=== PATIENT | male | born 1960 | race Caucasian/White ===

== ENCOUNTER 2017-08-02 22:40 | Emergency (ER) ==
[2017-08-02] MEDS ORDERED: ASPIRIN 81 MG TABLET, CHEWABLE PO ONE (22:49)
--- NOTE | 2017-08-03 11:41 | EKG REPORT ---
SEVERITY:- ABNORMAL ECG - SINUS TACHYCARDIA LEFT AXIS DEVIATION LEFT VENTRICULAR HYPERTROPHY BORDERLINE PROLONGED QT INTERVAL : Confirmed by: Alana Pavon MD 03-Aug-2017 11:40:21
== END 2017-08-03 00:43 | disposition left against medical advice (07) ==
LOC: EDBD → ER 22:40
DX: Z53.21 Procedure and treatment not carried out due to patient leaving prior to being seen by health care provider (principal)
CPT/HCPCS: 93005; 93010

== ENCOUNTER 2017-09-17 19:34 | Emergency (ER) | payer OTHER ==
[2017-09-17] MEDS ORDERED: ASPIRIN 81 MG TABLET, CHEWABLE PO ONE (19:57)
--- NOTE | 2017-09-17 19:59 | ER Document Report ---
ED Medical Screen (RME) - General Chief Complaint: Chest Pain Stated Complaint: CHEST PAIN Time Seen by Provider: 09/17/17 19:54 TRAVEL OUTSIDE OF THE [place] IN LAST 30 DAYS: No - HPI Notes: 09/17/17 19:58 History of CAD with stent placement history CHF states chest pain ongoing for the last 24 hours secondary chest recently [facility] states is out of his medications at this time. States orthopnea dyspnea on exertion - Related Data Allergies/Adverse Reactions: Penicillins Allergy (Verified 09/17/17 19:37) Review of Systems - Review of Systems Constitutional: Other - Chest pain Physical Exam - Vital signs Vitals: Temp Pulse Resp BP Pulse Ox 98.0 F 104 H 20 163/80 H 97 09/17/17 19:53 09/17/17 19:53 09/17/17 19:53 09/17/17 19:53 09/17/17 19:53 - Respiratory Respiratory status: No respiratory distress Chest status: Nontender Breath sounds: Normal Chest palpation: Normal Course - Vital Signs Vital signs: Temp Pulse Resp BP Pulse Ox 98.0 F 104 H 20 163/80 H 97 09/17/17 19:53 09/17/17 19:53 09/17/17 19:53 09/17/17 19:53 09/17/17 19:53
[2017-09-17 20:36] LABS: ABSOLUTE BASOPHILS # (AUTO) 0.1 10^3/uL (0.0-0.2); ABSOLUTE EOSINOPHILS # (AUTO) 0.3 10^3/uL (0.0-0.6); ABSOLUTE LYMPHOCYTES (AUTO) 1.4 10^3/uL (0.5-4.7); ABSOLUTE MONOCYTES (AUTO) 0.7 10^3/uL (0.1-1.4); ABSOLUTE NEUT (AUTO) 5.8 10^3/uL (1.7-8.2); EOSINOPHILS % (AUTO) 3.3 % (0-6); HEMATOCRIT 41.2 % (37.9-51.0); HEMOGLOBIN 14.2 g/dL (13.5-17.0); LYMPHOCYTES % (AUTO) 17.2 % (13-45); MEAN CORPUSCULAR HEMOGLOBIN 31.2 pg (27.0-33.4); MEAN CORPUSCULAR HGB CONC 34.4 g/dL (32.0-36.0); MEAN CORPUSCULAR VOLUME 91 fl (80-97); PLATELET COUNT 220 10^3/uL (150-450); RED BLOOD COUNT 4.55 10^6/uL (4.35-5.55); RED CELL DISTRIBUTION WIDTH 13.9 % (11.5-14.0); SEGMENTED NEUTROPHILS % (AUTO) 69.5 % (42-78); TOTAL CELLS COUNTED % (AUTO) 100 %; WHITE BLOOD COUNT 8.3 10^3/uL (4.0-10.5)
[2017-09-17 20:45] LABS: PROTHROMBIN TIME 12.6 SEC (11.4-15.4)
[2017-09-17 20:50] LABS: ALANINE AMINOTRANSFERASE 32 U/L (21-72); ALBUMIN 3.9 g/dL (3.5-5.0); ALKALINE PHOSPHATASE 62 U/L (38-126); ANION GAP 11 (5-19); ASPARTATE AMINO TRANSFERASE 24 U/L (17-59); BILIRUBIN,DIRECT 0.3 mg/dL (0.0-0.4); BLOOD UREA NITROGEN 12 mg/dL (7-20); CALCIUM 9.7 mg/dL (8.4-10.2); CARBON DIOXIDE 26 mmol/L (22-30); CHLORIDE 107 mmol/L (98-107); CREATINE KINASE 59 U/L (55-170); GLUCOSE 105 mg/dL (75-110); LIPASE 109.1 U/L (23-300); SODIUM 143.6 mmol/L (137-145); TOTAL PROTEIN 7.1 g/dL (6.3-8.2)
[2017-09-17 21:02] LABS: CREATINE KINASE MB 2.24 ng/mL (<4.55)
--- NOTE | 2017-09-17 21:08 | RADIOLOGY REPORT (SQ) ---
EXAM DESCRIPTION: CHEST SINGLE VIEW COMPLETED DATE/TIME: 09/17/2017 8:44 pm REASON FOR STUDY: sob cp COMPARISON: None. EXAM PARAMETERS: NUMBER OF VIEWS: One view. TECHNIQUE: Single frontal radiographic view of the chest acquired. RADIATION DOSE: NA LIMITATIONS: None. FINDINGS: LUNGS AND PLEURA: No opacities, masses or pneumothorax. No pleural effusion. MEDIASTINUM AND HILAR STRUCTURES: No masses. Contour normal. HEART AND VASCULAR STRUCTURES: Heart upper limits of normal in size. Normal vasculature. BONES: No acute findings. HARDWARE: None in the chest. OTHER: No other significant finding. IMPRESSION: NO ACUTE RADIOGRAPHIC FINDING IN THE CHEST. TECHNICAL DOCUMENTATION: JOB ID: [id number] [employer]- All Rights Reserved Reading location - IP/workstation name: [email or web address]
[2017-09-17 21:17] LABS: TROPONIN I 0.089 ng/mL
[2017-09-17] MEDS ORDERED: ONDANSETRON HCL INJ/PF 4 MG/2 ML SDV IV ONE (21:38)
--- NOTE | 2017-09-17 21:38 | ER Document Report ---
ED Respiratory Problem - General Chief Complaint: Chest Pain Stated Complaint: CHEST PAIN Time Seen by Provider: 09/17/17 19:54 Notes: Patient is a 56-year-old male that comes emergency department for chief complaint of shortness of breath for the past 24 hours, he states since a day ago he cannot seem to catch his breath, he can barely walk across the room, he cannot lie flat or get comfortable. He reports tightness across the chest with the shortness of breath but denies specific chest pain. Reports nausea, denies vomiting. Denies fever or chills, cough. He smokes, has a history of CAD with stents in 2015 in [place], has a history of CHF which was mild per patient. He states he has not had any lower extremity swelling. He used to be on carvedilol, lisinopril, and only as needed Lasix but he is in transition with his job and out of insurance at the time. He denies any recent long distance travel or surgery. Denies history of pulmonary embolism. TRAVEL OUTSIDE OF THE [place] IN LAST 30 DAYS: No - Related Data Allergies/Adverse Reactions: Penicillins Allergy (Verified 09/17/17 19:37) Past Medical History - General Information source: Patient - Social History Smoking Status: Current Every Day Smoker Chew tobacco use (# tins/day): No Frequency of alcohol use: Occasional Drug Abuse: None Lives with: Alone Family History: Reviewed & Not Pertinent Patient has suicidal ideation: No Patient has homicidal ideation: No - Past Medical History Cardiac Medical History: Reports: Hx Congestive Heart Failure, Hx Heart Attack - x2 Pulmonary Medical History: Reports: Hx COPD Renal/ Medical History: Denies: Hx Peritoneal Dialysis Past Surgical History: Reports: Hx Appendectomy, Hx Cardiac Surgery - stent x2, Hx Orthopedic Surgery - 9 back sx Review of Systems - Review of Systems Constitutional: No symptoms reported EENT: No symptoms reported Cardiovascular: See HPI Respiratory: See HPI Gastrointestinal: No symptoms reported Genitourinary: No symptoms reported Male Genitourinary: No symptoms reported Musculoskeletal: No symptoms reported Skin: No symptoms reported Hematologic/Lymphatic: No symptoms reported Neurological/Psychological: No symptoms reported Physical Exam - Vital signs Vitals: Temp Pulse Resp BP Pulse Ox 98.0 F 104 H 20 163/80 H 97 09/17/17 19:53 09/17/17 19:53 09/17/17 19:53 09/17/17 19:53 09/17/17 19:53 - Notes Notes: GENERAL: Alert, interacts well. Patient appears mildly uncomfortable. HEAD: Normocephalic, atraumatic. EYES: Pupils equal, round, and reactive to light. Extraocular movements intact. ENT: Oral mucosa moist, tongue midline. NECK: Full range of motion. Supple. Trachea midline. LUNGS: Clear to auscultation bilaterally, no wheezes, rales, or rhonchi. Mild tachypnea. HEART: Tachycardia with normal rhythm. No murmur ABDOMEN: Soft, non-tender. Non-distended. Bowel sounds present in all 4 quadrants. EXTREMITIES: Moves all 4 extremities spontaneously. No edema, normal radial and dorsalis pedis pulses bilaterally. No cyanosis. BACK: no cervical, thoracic, lumbar midline tenderness. No saddle anesthesia, normal distal neurovascular exam. NEUROLOGICAL: Alert and oriented x3. Normal speech. [cranial nerves II through XII grossly intact]. SKIN: Warm, dry, normal turgor. No rashes or lesions noted. Course - Re-evaluation Re-evalutation: 09/17/17 21:38 EKG shows sinus tachycardia at a rate of 108, left ventricular hypertrophy, no T -wave inversions or ST segment changes in consecutive leads. Patient noted to be mildly short of breath with tachypnea on examination, he is tachycardic at 115 on my evaluation. He states at rest right now his chest is not tight, he reports some nausea. Because of tachycardia, shortness of breath , dyspnea on exertion, chest tightness, will rule out PE. Initial troponin 0 0.089, will trend. BNP is mildly elevated in the 1999s, no comparison. CBC, chemistry generally unremarkable. Chest x-ray unremarkable with no vascular congestion, patient has no rales on exam, no peripheral edema. He is not hypoxic. CTA with some patchy areas bilaterally but no overt consolidation, no PE, no dissection, no other acute abnormality. Given Lasix. Repeat troponin elevating with troponin 00.11 now, patient without significant change in his symptoms, repeat EKG with no development. Starting Lovenox. Patient was given aspirin and morphine because of patient's amount of discomfort on the bed although he still denies chest tightness on my reevaluation. Because of elevating troponin, patient's symptoms, and his history including multiple stents patient will most likely need transfer to tertiary care center with interventional cardiology. Discussed with Dr. Newman. Discussed with patient. Called and spoke with Dr. Prieto, cardiology at [facility]. Patient accepted for transfer. 09/18/17 02:10 Patient relaxed, states he feels better than previously, denies any new complaints, no significant change in vital signs except for slightly elevating blood pressure. 09/18/17 02:40 Patient is complaining of tightness in his chest now. EMS team is here. Starting nitroglycerin drip for this to infuse during transport. No significant change otherwise. Stable for transport. - Vital Signs Vital signs: Temp Pulse Resp BP Pulse Ox 97.5 F 97 20 162/101 H 96 09/18/17 02:33 09/18/17 00:56 09/18/17 02:33 09/18/17 02:33 09/18/17 02:33 - Laboratory Result Diagrams: 09/17/17 20:18 09/17/17 20:18 Laboratory results interpreted by me: 09/17/17 20:18 NT-Pro-B Natriuret Pep 2810 H Critical Care Note - Critical Care Note Total time excluding time spent on procedures (mins): 35 - Chest pain, elevated troponin Comments: Please allow 35 minutes of critical care time for management of patient with chest pain, elevating troponin. Time spent performing workup, reevaluating patient multiple times, treating for suspected developing N STEMI with aspirin, Lovenox, morphine, treating suspected congestive heart failure with Lasix, treating developing chest pain with nitroglycerin drip. Consultation and transfer to tertiary care center. Discharge - Discharge Clinical Impression: Chest tightness, Elevated troponin, Shortness of breath Condition: Stable Disposition: [facility]
--- NOTE | 2017-09-17 22:48 | RADIOLOGY REPORT (SQ) ---
EXAM DESCRIPTION: CT CHEST ANGIOGRAPHY WITHOUT THEN WITH IV CONTRAST COMPLETED DATE/TME: 09/17/2017 21:36 CLINICAL HISTORY: 56 years, Male, tachycardia, short of breath, chest tightness COMPARISON: PROCEDURE: CLINICAL HISTORY: 56 years Male tachycardia, short of breath, chest tightness COMPARISON: None. TECHNIQUE: Contiguous axial images were obtained through the chest during the infusion of IV contrast. Reformatted images obtained. MIP reformatted images obtained. This exam was performed according to our department optimization program which includes automated exposure control, adjustment of the mA and/or kv according to patient size and/or use of iterative reconstruction technique. FINDINGS: There are mildly enlarged mediastinal lymph nodes. Partially solid appearing 12 mm left lung base pulmonary lesion is present. There is scattered atelectasis and consolidation elsewhere in the left lung base. Partially solid nodule is seen at the right lung base and measures 17 mm AP by 12 mm transverse. There is scattered groundglass opacification in both lungs. No pneumothorax is seen. Heart size is normal. No pleural effusions. No lymphadenopathy. No PE is seen. No evidence of aortic aneurysm. No other significant abnormality. IMPRESSION: No evidence of pulmonary embolus. See additional findings above.
--- NOTE | 2017-09-17 22:54 | EKG REPORT ---
SEVERITY:- ABNORMAL ECG - SINUS TACHYCARDIA LEFT ATRIAL ABNORMALITY LVH WITH SECONDARY REPOLARIZATION ABNORMALITY : Confirmed by: Pascual Overton 17-Sep-2017 22:53:50
[2017-09-18] MEDS ORDERED: MORPHINE SULFATE 10 MG/ML INJ IV ONE (00:08)
[2017-09-18] MEDS ORDERED: ENOXAPARIN SODIUM INJ 120 MG/0.8 ML DISP.SYRIN SUBCUT SCH (00:15)
[2017-09-18] MEDS ORDERED: FUROSEMIDE INJ/PF 40 MG/4 ML SDV IV ONE (00:25)
[2017-09-18] MEDS ORDERED: ENOXAPARIN SODIUM INJ 120 MG/0.8 ML DISP.SYRIN SUBCUT ONE (00:30)
[2017-09-18] MEDS ORDERED: NITROGLYCERIN/D5W 50 MG/250 ML RTUINJ IV PRN (02:39)
[2017-09-18] MEDS ORDERED: NITROGLYCERIN/D5W 50 MG/250 ML RTUINJ IV ONE (02:46)
[2017-09-18 02:53] VITALS: BP 162/101
--- NOTE | 2017-09-18 06:46 | EKG REPORT ---
SEVERITY:- ABNORMAL ECG - SINUS RHYTHM NONSPECIFIC INTRAVENTRICULAR CONDUCTION DELAY LEFT VENTRICULAR HYPERTROPHY : Confirmed by: Pascual Overton 18-Sep-2017 06:45:59
[2017-09-18] MEDS ORDERED: ENOXAPARIN SODIUM INJ 100 MG/1 ML DISP.SYRIN SUBCUT SCH (10:00)
== END 2017-09-18 02:52 | disposition short-term general hospital (02) ==
LOC: ER 19:34
DX: R07.89 Other chest pain (principal); R74.8 Abnormal levels of other serum enzymes; I25.10 Atherosclerotic heart disease of native coronary artery without angina pectoris; R00.0 Tachycardia, unspecified; I51.7 Cardiomegaly; J44.9 Chronic obstructive pulmonary disease, unspecified; R06.02 Shortness of breath; R11.0 Nausea; F17.200 Nicotine dependence, unspecified, uncomplicated; Z95.5 Presence of coronary angioplasty implant and graft; Z88.0 Allergy status to penicillin
CPT/HCPCS: 93005 ×2; 99285; 96372; 96374; 96375; 36415; 82553; 82550; 83690; 85025; 85610; 80053; 84484; 83880; 71045; 71275; 93010 ×2; J1940; J1650; J2270; J2405; J3490

== ENCOUNTER 2018-04-05 17:00 | Observation (INO) | payer SELFPAY ==
--- NOTE | 2018-04-05 18:40 | ER Document Report ---
ED Medical Screen (RME) - General Chief Complaint: Chest Pain Stated Complaint: CHEST PAIN Time Seen by Provider: 04/05/18 18:27 Notes: 57-year-old's male presents emergency department complaints of chest pain, shortness of breath, rectal bleeding. Symptoms have been present intermittently for the last 4 weeks. Patient has a history of coronary artery disease with 5 stents placed. He states that he also has hypertension, diabetes, hyper lipidemia, COPD, CHF. Patient states that he took aspirin this morning. He states that the rectal bleeding is bright red and mixed in the stool. He has a history of hemorrhoids but thinks the bleeding is coming from elsewhere. He denies any straining. I have greeted and performed a rapid initial assessment of this patient. A comprehensive ED assessment and evaluation of the patient, analysis of test results and completion of the medical decision making process will be conducted by additional ED providers. PHYSICAL EXAMINATION: GENERAL: Well-appearing, well-nourished and in no acute distress. HEAD: Atraumatic, normocephalic. EYES: Pupils equal round extraocular movements intact, conjunctiva are normal. ENT: Nares patent NECK: Normal range of motion LUNGS: No respiratory distress Musculoskeletal: Normal range of motion NEUROLOGICAL: Normal speech, normal gait. PSYCH: Normal mood, normal affect. SKIN: Warm, Dry, normal turgor, no rashes or lesions noted. TRAVEL OUTSIDE OF THE [place] IN LAST 30 DAYS: No - Related Data Allergies/Adverse Reactions: Penicillins Allergy (Verified 04/05/18 17:08) ondansetron [From Zofran] Adverse Reaction (Verified 04/05/18 18:26) headache Past Medical History - Social History Chew tobacco use (# tins/day): No Frequency of alcohol use: None Drug Abuse: None - Past Medical History Cardiac Medical History: Reports: Hx Congestive Heart Failure, Hx Heart Attack - x2, Hx Hypercholesterolemia, Hx Hypertension Pulmonary Medical History: Reports: Hx COPD Renal/ Medical History: Denies: Hx Peritoneal Dialysis Past Surgical History: Reports: Hx Appendectomy, Hx Cardiac Surgery - stent x2, Hx Orthopedic Surgery - 9 back sx Physical Exam - Vital signs Vitals: Temp Pulse Resp BP Pulse Ox 97.6 F 78 20 166/83 H 97 04/05/18 17:19 04/05/18 17:19 04/05/18 17:19 04/05/18 17:19 04/05/18 17:19 Course - Vital Signs Vital signs: Temp Pulse Resp BP Pulse Ox 97.6 F 78 20 166/83 H 97 04/05/18 17:19 04/05/18 17:19 04/05/18 17:19 04/05/18 17:19 04/05/18 17:19
--- NOTE | 2018-04-05 18:57 | RADIOLOGY REPORT (SQ) ---
EXAM DESCRIPTION: CHEST SINGLE VIEW COMPLETED DATE/TIME: 04/05/2018 6:48 pm REASON FOR STUDY: chest pain COMPARISON: 09/17/2017 EXAM PARAMETERS: NUMBER OF VIEWS: One view. TECHNIQUE: Single frontal radiographic view of the chest acquired. RADIATION DOSE: NA LIMITATIONS: None. FINDINGS: LUNGS AND PLEURA: No opacities, masses or pneumothorax. No pleural effusion. MEDIASTINUM AND HILAR STRUCTURES: No masses. Contour normal. HEART AND VASCULAR STRUCTURES: Heart normal in size. Normal vasculature. BONES: No acute findings. HARDWARE: None in the chest. OTHER: No other significant finding. IMPRESSION: NO ACUTE RADIOGRAPHIC FINDING IN THE CHEST. TECHNICAL DOCUMENTATION: JOB ID: [id number] [employer]- All Rights Reserved Reading location - IP/workstation name: [email or web address]
[2018-04-05 19:05] LABS: ABSOLUTE BASOPHILS # (AUTO) 0.1 10^3/uL (0.0-0.2); ABSOLUTE EOSINOPHILS # (AUTO) 0.5 10^3/uL (0.0-0.6); ABSOLUTE LYMPHOCYTES (AUTO) 1.9 10^3/uL (0.5-4.7); ABSOLUTE NEUT (AUTO) 5.6 10^3/uL (1.7-8.2); BASOPHILS % (AUTO) 1.1 % (0-2); EOSINOPHILS % (AUTO) 5.4 % (0-6); HEMATOCRIT 41.2 % (37.9-51.0); HEMOGLOBIN 14.5 g/dL (13.5-17.0); LYMPHOCYTES % (AUTO) 20.5 % (13-45); MEAN CORPUSCULAR HGB CONC 35.1 g/dL (32.0-36.0); MEAN CORPUSCULAR VOLUME 91 fl (80-97); PLATELET COUNT 252 10^3/uL (150-450); RED BLOOD COUNT 4.52 10^6/uL (4.35-5.55); RED CELL DISTRIBUTION WIDTH 13.5 % (11.5-14.0); TOTAL CELLS COUNTED % (AUTO) 100 %; WHITE BLOOD COUNT 9.1 10^3/uL (4.0-10.5)
[2018-04-05 19:24] LABS: ALANINE AMINOTRANSFERASE 24 U/L (21-72); ALBUMIN 4.5 g/dL (3.5-5.0); ALKALINE PHOSPHATASE 84 U/L (38-126); ANION GAP 11 (5-19); ASPARTATE AMINO TRANSFERASE 37 U/L (17-59); BILIRUBIN,DIRECT 0.2 mg/dL (0.0-0.4); BILIRUBIN,TOTAL 0.7 mg/dL (0.2-1.3); BLOOD UREA NITROGEN 12 mg/dL (7-20); CALCIUM 9.6 mg/dL (8.4-10.2); CARBON DIOXIDE 26 mmol/L (22-30); CHLORIDE 105 mmol/L (98-107); GLUCOSE 81 mg/dL (75-110); POTASSIUM 4.5 mmol/L (3.6-5.0); SODIUM 141.9 mmol/L (137-145); TOTAL PROTEIN 7.8 g/dL (6.3-8.2)
--- NOTE | 2018-04-06 03:03 | ER Document Report ---
ED General - General Chief Complaint: Chest Pain Stated Complaint: CHEST PAIN Time Seen by Provider: 04/05/18 18:27 Notes: Patient is a 57-year-old male with a past medical history of coronary artery disease, has had 5 stents placed recently in August 2017, hypertension, hyperlipidemia, obesity, presents complaining of 1 month of intermittent chest discomfort as well as exertional dyspnea. The patient reports for the past 1 month he has had increasing frequent episodes of left-sided chest pain that radiated to his jaw and arm. Describes this as a heaviness or pressure in the left chest. States that exertion does seem to trigger the symptoms. Has tried nitroglycerin without relief. States the part of the past 1 month he never had chest pain like this except for when he had his myocardial infarction in August 2017. Patient does note some mild left-sided chest pressure at this time although states it is minimal and much better than prior to when he came to the hospital. The patient also reports that he has difficulty exerting himself, states that he cannot get up 2 flights of steps without becoming completely out of breath which again is new and different for him over the past 1 month. He has no primary care doctor, has not followed up with cardiology since having stents placed in August. TRAVEL OUTSIDE OF THE [place] IN LAST 30 DAYS: No - Related Data Allergies/Adverse Reactions: Penicillins Allergy (Verified 04/05/18 17:08) ondansetron [From Zofran] Adverse Reaction (Verified 04/05/18 18:26) headache Past Medical History - General Information source: Patient - Social History Smoking Status: Current Every Day Smoker Chew tobacco use (# tins/day): No Frequency of alcohol use: None Drug Abuse: None Lives with: Family Family History: Reviewed & Not Pertinent Patient has suicidal ideation: No Patient has homicidal ideation: No - Past Medical History Cardiac Medical History: Reports: Hx Congestive Heart Failure, Hx Heart Attack - x2, Hx Hypercholesterolemia, Hx Hypertension Pulmonary Medical History: Reports: Hx COPD Renal/ Medical History: Denies: Hx Peritoneal Dialysis Past Surgical History: Reports: Hx Appendectomy, Hx Cardiac Surgery - stent x5, Hx Orthopedic Surgery - 9 back sx Review of Systems - Review of Systems Notes: Constitutional: Negative for fever. HENT: Negative for sore throat. Eyes: Negative for visual changes. Cardiovascular: Positive for chest pain. Respiratory: Positive e for shortness of breath. Gastrointestinal: Negative for abdominal pain, vomiting or diarrhea. Genitourinary: Negative for dysuria. Musculoskeletal: Negative for back pain. Skin: Negative for rash. Neurological: Negative for headaches, weakness or numbness. 10 point ROS negative except as marked above and in HPI. Physical Exam - Vital signs Vitals: Temp Pulse Resp BP Pulse Ox 97.6 F 78 20 166/83 H 97 04/05/18 17:19 04/05/18 17:19 04/05/18 17:19 04/05/18 17:19 04/05/18 17:19 Interpretation: Hypertensive Notes: PHYSICAL EXAMINATION: GENERAL: Well-appearing, well-nourished and in no acute distress. HEAD: Atraumatic, normocephalic. EYES: Pupils equal round and reactive to light, extraocular movements intact, sclera anicteric, conjunctiva are normal. ENT: nares patent, oropharynx clear without exudates. Moist mucous membranes. NECK: Normal range of motion, supple without lymphadenopathy LUNGS: Breath sounds clear to auscultation bilaterally and equal. No wheezes rales or rhonchi. HEART: Regular rate and rhythm without murmurs ABDOMEN: Soft, nontender, normoactive bowel sounds. No guarding, no rebound. No masses appreciated. Rectal: 3 non-thrombosed external hemorrhoids. EXTREMITIES: Normal range of motion, no pitting or edema. No cyanosis. NEUROLOGICAL: No focal neurological deficits. Moves all extremities spontaneously and on command. PSYCH: Normal mood, normal affect. SKIN: Warm, Dry, normal turgor, no rashes or lesions noted. Course - Re-evaluation Re-evalutation: 04/06/18 02:59 Patient presents with 1 month of intermittent chest pain that has become substantially worse in the last several days. He also notes that he has had increasing exertional tolerance, unable to get up to 2 flights of steps without becoming completely short of breath and developing chest discomfort. States prior to the past 1 months was not an issue. Currently notes some mild left- sided chest pressure. Initial troponin was mildly elevated, up trended and then came back down again to 0.038. This does however remain in the indeterminate range. Given patient's clinical history, history of repeated stents, lack of outpatient follow-up, will request hospitalization for cardiac stress testing. Patient did also complain of bright red blood with stooling. On rectal examination he has 3 external hemorrhoids, no active bleeding. No evidence of anemia on CBC. - Vital Signs Vital signs: Temp Pulse Resp BP Pulse Ox 97.6 F 78 12 155/82 H 98 04/05/18 17:19 04/05/18 17:19 04/06/18 01:00 04/06/18 00:32 04/06/18 01:09 - Laboratory Result Diagrams: 04/05/18 18:30 04/05/18 18:30 - Diagnostic Test Radiology reviewed: Image reviewed, Reports reviewed Radiology results interpreted by me: 04/06/18 03:00 Chest x-ray: No acute infiltrate or pneumothorax - EKG Interpretation by Me Additional EKG results interpreted by me: 04/06/18 03:00 Sinus rhythm, rate 77. No ST elevations or depressions. QTC is 421. Discharge - Discharge Clinical Impression: External hemorrhoids, Exertional dyspnea Chest pain Qualifiers: Chest pain type: unspecified Qualified Code(s): R07.9 - Chest pain, unspecified Condition: Fair Disposition: ADMITTED OBSERVATION Admitting Provider: Hospitalist Unit Admitted: Telemetry
[2018-04-06] MEDS ORDERED: MORPHINE SULFATE 10 MG/ML INJ IV PRN ×4 (03:06→03:14)
[2018-04-06] MEDS ORDERED: MAGNESIUM HYDROXIDE SUSP 30 ML UDCUP PO PRN (03:10)
[2018-04-06] MEDS ORDERED: MAG HYDROX/AL HYDROX/SIMETH SUSP 30 ML UDCUP PO PRN (03:10)
[2018-04-06] MEDS ORDERED: NICOTINE 21 MG/24 HR PATCH.TD24 TD PRN (03:14)
[2018-04-06] MEDS ORDERED: ACETAMINOPHEN 325 MG TABLET PO PRN (03:14)
[2018-04-06] MEDS ORDERED: NITROGLYCERIN 0.4 MG/TAB 25 TAB/BOTTLE SL PRN (03:14)
[2018-04-06] MEDS ORDERED: PROMETHAZINE HCL INJ 25 MG/1 ML VIAL IV PRN (03:16)
[2018-04-06] MEDS: NITROGLYCERIN 0.4 MG/TAB 25 TAB/BOTTLE SL PRN ×2 (03:50→03:59)
[2018-04-06] MEDS ORDERED: FONDAPARINUX SODIUM INJ 2.5 MG/0.5 ML DISP.SYRIN SUBCUT SCH (08:00)
[2018-04-06 08:33] LABS: CREATINE KINASE MB 1.67 ng/mL (<4.55)
[2018-04-06 08:37] LABS: FREE T3 4.35 pg/mL (2.77-5.27); FREE T4 (FREE THYROXINE) 0.87 ng/dL (0.78-2.19)
[2018-04-06 08:41] LABS: TROPONIN I 0.042 ng/mL
[2018-04-06] MEDS ORDERED: DOCUSATE SODIUM 100 MG CAPSULE PO SCH (10:00)
[2018-04-06] MEDS ORDERED: FAMOTIDINE 20 MG TABLET PO SCH (10:00)
[2018-04-06] MEDS ORDERED: REGADENOSON INJ 0.4 MG/5 ML DISP.SYRIN IV ONE (12:00)
--- NOTE | 2018-04-06 12:34 | EKG REPORT ---
SEVERITY:- ABNORMAL ECG - SINUS RHYTHM LVH WITH SECONDARY REPOLARIZATION ABNORMALITY : Confirmed by: Pascual Overton 06-Apr-2018 12:33:31
--- NOTE | 2018-04-06 13:58 | EKG REPORT ---
SEVERITY:- ABNORMAL ECG - SINUS RHYTHM LEFT VENTRICULAR HYPERTROPHY : Confirmed by: Pascual Overton 06-Apr-2018 13:57:04
[2018-04-06] MEDS ORDERED: ASPIRIN 81 MG TABLET, ENT COATED PO SCH (14:00)
[2018-04-06] MEDS ORDERED: METOPROLOL TARTRATE 50 MG TABLET PO SCH (14:00)
[2018-04-06] MEDS ORDERED: TICAGRELOR 90 MG TABLET PO SCH (14:00)
[2018-04-06] MEDS ORDERED: FUROSEMIDE 20 MG TABLET PO SCH (14:00)
[2018-04-06] MEDS ORDERED: LISINOPRIL 10 MG TABLET PO SCH (14:00)
[2018-04-06 15:03] LABS: CREATINE KINASE MB 1.63 ng/mL (<4.55); TROPONIN I 0.03 ng/mL
[2018-04-06 15:10] VITALS: BP 166/93
[2018-04-06] MEDS ORDERED: ISOSORBIDE MONONITRATE 30 MG TAB.ER.24H PO SCH (15:15)
[2018-04-06] MEDS ORDERED: ATORVASTATIN CALCIUM 80 MG TABLET PO SCH (22:00)
[2018-04-07] MEDS ORDERED: CLOPIDOGREL BISULFATE 75 MG TABLET PO SCH (10:00)
--- NOTE | 2018-04-07 22:52 | DRAGON STRESS TEST REPORT ---
Intravenous Lexiscan Cardiolite stress test using single photon emmision computerized tomography. Date of procedure: 04/06/2018. Ordering Provider: Dr. Esparza Patient's status: In Patient. Indication: Chest pain in a patient with history of prior myocardial infarction, and coronary artery stents.. Coronary risk factors: Age, hypertension, dyslipidemia, and history of tobacco abuse. Resting EKG: Sinus Rhythm. Nonspecific T changes in the lateral leads. Stress EKG[ No changes of ischemia. Reason for termination: Protocol. Conclusions: Normal EKG and hemodynamic response to IV Lexiscan. Nuclear data: At rest the patient was given 14.32 millicuries of technetium 99m sestamibi injected intravenously. As per protocol rest non gated SPECT images were obtained. Subsequently the patient was given intravenous Lexiscan at a dose of 0.4 mg in 5 mL intravenously, followed by flush with normal saline. Subsequently the stress dose of 45.7 millicuries of technetium 99m sestamibi was injected intravenously. As per protocol stress gated images were obtained. Nuclear interpretation: Review of images showed that all segments of the myocardium had normal perfusion at rest, and normal perfusion post stress with IV Lexiscan. All segments of the myocardium had thickening by gated study. The left ventricle was dilated, and there was moderate global LV hypokinesis. T. I D. ratio was normal at 0.98.. There is no transient ischemic dilatation of the left ventricle. Computer read rest, and stress left ventricular ejection fraction were 42 %, and 44 %, respectively. Visually both the stress and rest ejection fractions were moderately decreased l, and where 40% to 45%. Conclusion: 1. There is no scintigraphic evidence of Lexiscan induced myocardial ischemia. 2. There is no scintigraphic evidence of myocardial infarction/scar. 3. Dilated left ventricle with moderate global hypokinesis, with moderate reduction in LV ejection fraction consistent with cardiomyopathy. Recommendations: 1. Check echo for LV ejection fraction correlation. 2. Aggressive risk factor modification, and treating the underlying co- morbidities. MTDD
--- NOTE | 2018-04-09 05:15 | PDOC H&P ---
History of Present Illness Admission Date/PCP: 04/06/2018 Patient complains of: chest pain History of Present Illness: DIANA KAY is a 57 year old male with a past medical history of coronary ar nba disease, has had 5 stents placed recently in August 2017, hypertension, hyperlipidemia, obesity, presents complaining of 1 month of intermittent chest discomfort as well as exertional dyspnea. The patient reports for the past 1 month he has had increasing frequent episodes of left-sided chest pain that radiated to his jaw and arm. Describes this as a heaviness or pressure in the left chest. States that exertion does seem to trigger the symptoms. Has tried nitroglycerin without relief. States the part of the past 1 month he never had chest pain like this except for when he had his myocardial infarction in August 2017. Patient does note some mild left-sided chest pressure at this time a lthough states it is minimal and much better than prior to when he came to the hospital. The patient also reports that he has difficulty exerting himself, states that he cannot get up 2 flights of steps without becoming completely out of breath which again is new and different for him over the past 1 month. He has no primary care doctor, has not followed up with cardiology since having stents placed in August. EKG shows NSR with t wave inverseion in V4-6. Cardiac enzymes below threshold for AMI. (0.03). All other laboratory studies relatively benign. No pathology noted on CXR. At the time of my assessment, the patient denies chest pain. He reports that he has not been able to refill his cardiac medications due to a lapse in insurance. Plan to admit to hospitalist service for chest pain observation and inpatient stress test. Past Medical History Cardiac Medical History: Reports: Congestive Heart Failure, Myocardial Infarction - x2, Hyperlipidema, Hypertension Pulmonary Medical History: Reports: Chronic Obstructive Pulmonary Disease (COPD) Past Surgical History Past Surgical History: Reports: Appendectomy, Orthopedic Surgery - 9 back sx Social History Information Source: Patient Lives with: Family Smoking Status: Current Every Day Smoker - Advance Directive Resuscitation Status: Full Code Family History Family History: Reviewed & Not Pertinent Parental Family History Reviewed: Yes Children Family History Reviewed: Yes Sibling(s) Family History Reviewed.: Yes Medication/Allergy Home Medications: Aspirin [Aspirin 81 mg Chewable Tablet] 81 mg PO DAILY #30 tab.chew 04/06/18 Atorvastatin Calcium [Lipitor 80 mg Tablet] 80 mg PO QHS #30 tablet 04/06/18 Clopidogrel Bisulfate [Plavix 75 mg Tablet] 75 mg PO DAILY #30 tablet 04/06/18 Furosemide [Lasix 20 mg Tablet] 20 mg PO QAM #30 tablet 04/06/18 Isosorbide Mononitrate [Imdur 30 mg Tablet.er] 30 mg PO DAILY #30 tab.er.24h 04/06/18 Lisinopril [Prinivil 10 mg Tablet] 10 mg PO DAILY #30 tablet 04/06/18 Metoprolol Tartrate [Lopressor 50 mg Tablet] 50 mg PO Q12 #60 tablet 04/06/18 Nitroglycerin [Nitrostat 0.4 mg (1/150 Gr) Tabs 25/Bottle] 1 tab SL Q5MP PRN #1 bottle 04/06/18 Ticagrelor [Brilinta 90 mg Tablet] 1 tab PO BID 04/06/18 Allergies/Adverse Reactions: Penicillins Allergy (Verified 04/05/18 17:08) ondansetron [From Zofran] Adverse Reaction (Verified 04/05/18 18:26) headache Review of Systems All systems: reviewed and no additional remarkable complaints except as stated Physical Exam Vital Signs: Temp Pulse Resp BP Pulse Ox 97.6 F 78 20 166/93 H 96 04/05/18 17:19 04/05/18 17:19 04/06/18 15:08 04/06/18 15:08 04/06/18 15:08 General appearance: PRESENT: no acute distress, well-developed, well-nourished Head exam: PRESENT: atraumatic Eye exam: PRESENT: conjunctiva pink, PERRLA Mouth exam: PRESENT: moist, tongue midline Neck exam: PRESENT: full ROM Respiratory exam: PRESENT: clear to auscultation rajinder, symmetrical, unlabored Cardiovascular exam: PRESENT: RRR, +S1, +S2 Pulses: PRESENT: normal radial pulses, normal dorsalis pedis pul Vascular exam: PRESENT: normal capillary refill GI/Abdominal exam: PRESENT: normal bowel sounds, soft. ABSENT: distended Rectal exam: PRESENT: deferred Extremities exam: PRESENT: full ROM. ABSENT: pedal edema Musculoskeletal exam: PRESENT: ambulatory, full ROM, normal inspection Neurological exam: PRESENT: alert, oriented to person, oriented to place, oriented to time, oriented to situation, normal gait Psychiatric exam: PRESENT: appropriate affect Skin exam: PRESENT: dry, intact, normal color Results Laboratory Results: 04/05/18 18:30 04/05/18 18:30 04/05/18 04/05/18 04/06/18 18:30 21:20 01:30 Creatine Kinase CK-MB (CK-2) Troponin I 0.039 0.043 0.038 NT-Pro-B Natriuret Pep 04/06/18 04/06/18 04/06/18 07:42 07:42 14:15 Creatine Kinase 58 61 CK-MB (CK-2) 1.67 Troponin I 0.042 NT-Pro-B Natriuret Pep 285 04/06/18 14:15 Creatine Kinase CK-MB (CK-2) 1.63 Troponin I 0.030 NT-Pro-B Natriuret Pep Impressions: Chest X-Ray 04/05/18 18:37 IMPRESSION: NO ACUTE RADIOGRAPHIC FINDING IN THE CHEST. Status: Imported from PACS Assessment & Plan - Diagnosis (1) Chest pain Qualifiers: Chest pain type: unspecified Qualified Code(s): R07.9 - Chest pain, unspecified Is this a current diagnosis for this admission?: Yes Plan: Patient reports he has not taken his cardiac medications in approx. 1 month Chest pain free upon assessment Serial cardiac enzymes PRN SL Nitro Home dose brillinta supplemental o2 for SPO2>90% Plan for stress test this AM (2) HTN (hypertension) Is this a current diagnosis for this admission?: Yes Plan: hx htn resume home dose antihypertensives (3) CAD (coronary artery disease) Is this a current diagnosis for this admission?: Yes Plan: hx CAD resume brillinta - Time Time Spent: 30 to 50 Minutes Medications reviewed and adjusted accordingly: Yes Anticipated discharge: Home - Inpatient Certification Based on my medical assessment, after consideration of the patient's comorbidities, presenting symptoms, or acuity I expect that the services needed warrant INPATIENT care.: Yes I certify that my determination is in accordance with my understanding of Medicare's requirements for reasonable and necessary INPATIENT services [42 CFR 412.3e].: Yes Medical Necessity: Risk of Complication if Not Cared For in Hospital
--- NOTE | 2018-04-09 09:56 | PDOC DISCHARGE SUMMARY ---
General - Admit/Disc Date/PCP Discharge Date: 04/06/18 - Discharge Diagnosis (1) Chest pain Is this a current diagnosis for this admission?: Yes (2) HTN (hypertension) Is this a current diagnosis for this admission?: Yes (3) CAD (coronary artery disease) Is this a current diagnosis for this admission?: Yes - Additional Information Resuscitation Status: Full Code Discharge Diet: Cardiac Discharge Activity: Activity As Tolerated Prescriptions: Aspirin [Aspirin 81 mg Chewable Tablet] 81 mg PO DAILY #30 tab.chew Atorvastatin Calcium [Lipitor 80 mg Tablet] 80 mg PO QHS #30 tablet Clopidogrel Bisulfate [Plavix 75 mg Tablet] 75 mg PO DAILY #30 tablet Furosemide [Lasix 20 mg Tablet] 20 mg PO QAM #30 tablet Isosorbide Mononitrate [Imdur 30 mg Tablet.er] 30 mg PO DAILY #30 tab.er.24h Lisinopril [Prinivil 10 mg Tablet] 10 mg PO DAILY #30 tablet Metoprolol Tartrate [Lopressor 50 mg Tablet] 50 mg PO Q12 #60 tablet Nitroglycerin [Nitrostat 0.4 mg (1/150 Gr) Tabs 25/Bottle] 1 tab SL Q5MP PRN #1 bottle PRN Reason: Home Medications: Aspirin [Aspirin 81 mg Chewable Tablet] 81 mg PO DAILY #30 tab.chew 04/06/18 Atorvastatin Calcium [Lipitor 80 mg Tablet] 80 mg PO QHS #30 tablet 04/06/18 Clopidogrel Bisulfate [Plavix 75 mg Tablet] 75 mg PO DAILY #30 tablet 04/06/18 Furosemide [Lasix 20 mg Tablet] 20 mg PO QAM #30 tablet 04/06/18 Isosorbide Mononitrate [Imdur 30 mg Tablet.er] 30 mg PO DAILY #30 tab.er.24h 04/06/18 Lisinopril [Prinivil 10 mg Tablet] 10 mg PO DAILY #30 tablet 04/06/18 Metoprolol Tartrate [Lopressor 50 mg Tablet] 50 mg PO Q12 #60 tablet 04/06/18 Nitroglycerin [Nitrostat 0.4 mg (1/150 Gr) Tabs 25/Bottle] 1 tab SL Q5MP PRN #1 bottle 04/06/18 Ticagrelor [Brilinta 90 mg Tablet] 1 tab PO BID 04/06/18 History of Present Illness History of Present Illness: DIANA KAY is a 57 year old male with a past medical history of coronary artery disease, has had 5 stents placed recently in August 2017, hypertension, hyperlipidemia, obesity, presents complaining of 1 month of intermittent chest discomfort as well as exertional dyspnea. The patient reports for the past 1 month he has had increasing frequent episodes of left-sided chest pain that radiated to his jaw and arm. Describes this as a heaviness or pressure in the left chest. States that exertion does seem to trigger the symptoms. Has tried nitroglycerin without relief. States the part of the past 1 month he never had chest pain like this except for when he had his myocardial infarction in August 2017. Patient does note some mild left-sided chest pressure at this time although states it is minimal and much better than prior to when he came to the hospital. The patient also reports that he has difficulty exerting himself, states that he cannot get up 2 flights of steps without becoming completely out of breath which again is new and different for him over the past 1 month. He has no primary care doctor, has not followed up with cardiology since having stents placed in August. EKG shows NSR with t wave inverseion in V4-6. Cardiac enzymes below threshold for AMI. (0.03). All other laboratory studies relatively benign. No pathology noted on CXR. At the time of my assessment, the patient denies chest pain. He reports that he has not been able to refill his cardiac medications due to a lapse in insurance. Plan to admit to hospitalist service for chest pain observation and inpatient stress test. Hospital Course Hospital Course: Patient was admitted for chest pain observation. Upon assessment the patient was chest pain-free. Serial troponins peaked at 0.049. There was no evidence of transient ischemia. LV ejection fraction moderately reduced, global hypokinesis consistent with cardiomyopathy. Recommend outpatient echocardiogram. Discussed with [employer] teacher, Dr. Pavon. He feels that the patient is appropriate for outpatient follow-up. Provided patient with new prescriptions for all of his medications. Patient stated that without insurance he could not afford his Brilinta. Was switched to Plavix. Verified at [facility] that a 1 month supply of Plavix would only cost $11. Patient was discharged home on same day as admission. Told to follow-up with Dr. Pavon within 5-7 business days for an outpatient echocardiogram. Physical Exam Vital Signs: Temp Pulse Resp BP Pulse Ox 97.6 F 78 20 166/93 H 96 04/05/18 17:19 04/05/18 17:19 04/06/18 15:08 04/06/18 15:08 04/06/18 15:08 Results Laboratory Results: 04/05/18 18:30 04/05/18 18:30 04/05/18 04/05/18 04/06/18 18:30 21:20 01:30 Creatine Kinase CK-MB (CK-2) Troponin I 0.039 0.043 0.038 NT-Pro-B Natriuret Pep 04/06/18 04/06/18 04/06/18 07:42 07:42 14:15 Creatine Kinase 58 61 CK-MB (CK-2) 1.67 Troponin I 0.042 NT-Pro-B Natriuret Pep 285 04/06/18 14:15 Creatine Kinase CK-MB (CK-2) 1.63 Troponin I 0.030 NT-Pro-B Natriuret Pep Impressions: Chest X-Ray 04/05/18 18:37 IMPRESSION: NO ACUTE RADIOGRAPHIC FINDING IN THE CHEST. Qualifiers - * PATIENT BEING DISCHARGED WITH ANY OF THE FOLLOWING DIAGNOSIS: No
== END 2018-04-06 16:00 | disposition home or self-care (01) ==
LOC: ER 17:00 → EH 04-06 03:10 → UNDOADMOB 04-06 03:15 → EH 04-06 03:15 → ER 04-06 15:47
PROVIDERS: ADMIT Emergency Medicine; ATTEND Emergency Medicine
DX: R07.89 Other chest pain (principal); I25.10 Atherosclerotic heart disease of native coronary artery without angina pectoris; I11.0 Hypertensive heart disease with heart failure; I50.9 Heart failure, unspecified; E78.5 Hyperlipidemia, unspecified; R06.09 Other forms of dyspnea; K64.4 Residual hemorrhoidal skin tags; R19.5 Other fecal abnormalities; I25.2 Old myocardial infarction; F17.200 Nicotine dependence, unspecified, uncomplicated; Z79.82 Long term (current) use of aspirin; Z79.02 Long term (current) use of antithrombotics/antiplatelets; Z95.5 Presence of coronary angioplasty implant and graft; Z90.49 Acquired absence of other specified parts of digestive tract
CPT/HCPCS: 93005 ×2; 99285; 96372; 36415; 84439; 82553; 82550; 85025; 80053; 84484; 84481; 83880; 71045; 93010 ×2; J2785; J1652; J3490 ×2

== ENCOUNTER 2018-11-10 15:12 | Emergency (ER) | payer SELFPAY ==
[2018-11-10] MEDS ORDERED: KETOROLAC TROMETHAMINE INJ/PF 30 MG/1 ML SDV IM ONE (16:00)
[2018-11-10] MEDS ORDERED: OXYCODONE-ACETAMINOPHEN 5-325 MG TABLET PO ONE (16:00)
--- NOTE | 2018-11-10 16:02 | ER Document Report ---
ED Medical Screen (RME) - General Chief Complaint: Foot Pain Stated Complaint: LEG PAIN Time Seen by Provider: 11/10/18 15:55 Notes: Patient is a 57-year-old male with a history of hypertension, CHF, cardiac stents x5 and [place] x3 presents to the emergency department with a chief complaint of foot pain. Patient states 3 days ago he was walking the dog when he slipped. Patient states he did not fall but that his right ankle and foot twisted in a certain position. Patient complains of bilateral ankle pain and discomfort on the top of his foot. Patient states that yesterday he did develop a gout flare as well in the same foot at the great toe. Patient reports he did take his 10 mg lisinopril this morning around 8 AM. TRAVEL OUTSIDE OF THE [place] IN LAST 30 DAYS: No - Related Data Allergies/Adverse Reactions: Penicillins Allergy (Verified 11/10/18 15:16) ondansetron [From Zofran] Adverse Reaction (Verified 11/10/18 15:16) headache Past Medical History - Past Medical History Cardiac Medical History: Reports: Hx Congestive Heart Failure, Hx Heart Attack - x2, Hx Hypercholesterolemia, Hx Hypertension Pulmonary Medical History: Reports: Hx COPD Renal/ Medical History: Denies: Hx Peritoneal Dialysis Past Surgical History: Reports: Hx Appendectomy, Hx Cardiac Surgery - stent x5, Hx Orthopedic Surgery - 9 back sx Physical Exam - Vital signs Vitals: Temp Pulse Resp BP Pulse Ox 97.8 F 114 H 17 201/102 H 97 11/10/18 15:18 11/10/18 15:18 11/10/18 15:18 11/10/18 15:18 11/10/18 15:18 - Extremities Notes: Patient has significant tenderness and swelling noted to ankle and dorsal aspect of the foot. There is no ecchymosis or erythema. Course - Re-evaluation Re-evalutation: 11/10/18 16:02 Patient's blood pressure is elevated. Patient does report significant pain 5 out of 5. Will give pain medication as the patient is not driving, obtain an x- ray as the patient did have an injury. I have greeted and performed a rapid initial assessment of this patient. A comprehensive ED assessment and evaluation of the patient, analysis of test results and completion of the medical decision making process will be conducted by additional ED providers. - Vital Signs Vital signs: Temp Pulse Resp BP Pulse Ox 97.8 F 114 H 17 201/102 H 97 11/10/18 15:18 11/10/18 15:18 11/10/18 15:18 11/10/18 15:18 11/10/18 15:18
--- NOTE | 2018-11-10 18:55 | RADIOLOGY REPORT (SQ) ---
EXAM DESCRIPTION: ANKLE RIGHT COMPLETE COMPLETED DATE/TIME: 11/10/2018 6:37 pm REASON FOR STUDY: rolled ankle, + swelling, + foot pain COMPARISON: None. EXAM PARAMETERS: NUMBER OF VIEWS: Three views. TECHNIQUE: AP, lateral and oblique radiographic images acquired of the right ankle. LIMITATIONS: None. FINDINGS: MINERALIZATION: Normal. BONES: No acute fracture or dislocation. No worrisome bone lesions. JOINTS: No effusion. SOFT TISSUES: No significant soft tissue swelling. No radiopaque foreign body. OTHER: No other significant finding. IMPRESSION: NO FRACTURE. TECHNICAL DOCUMENTATION: JOB ID: [id number] [id number] 2010 [employer]- All Rights Reserved Reading location - IP/workstation name: [email or web address]
--- NOTE | 2018-11-10 18:57 | RADIOLOGY REPORT (SQ) ---
EXAM DESCRIPTION: FOOT RIGHT COMPLETE COMPLETED DATE/TIME: 11/10/2018 6:37 pm REASON FOR STUDY: rolled ankle, + swelling, + foot pain COMPARISON: None. EXAM PARAMETERS: NUMBER OF VIEWS: Three views. TECHNIQUE: AP, lateral and oblique radiographic images acquired of the right foot. LIMITATIONS: None. FINDINGS: MINERALIZATION: Normal. BONES: No acute fracture or dislocation. No worrisome bone lesions. JOINTS: No effusion. SOFT TISSUES: No significant soft tissue swelling. No radiopaque foreign body. OTHER: No other significant finding. IMPRESSION: NO FRACTURE. TECHNICAL DOCUMENTATION: JOB ID: [id number] [place]-[id number] 2010 [employer]- All Rights Reserved Reading location - IP/workstation name: [email or web address]
--- NOTE | 2018-11-10 19:38 | ER Document Report ---
ED Extremity Problem, Lower - General Chief Complaint: Foot Pain Stated Complaint: LEG PAIN Time Seen by Provider: 11/10/18 15:55 Primary Care Provider: [facility] [Provider Group] - Follow up as needed Mode of Arrival: Ambulatory Information source: Patient Notes: 57-year-old male presented to ED for complaint of pain and swelling to the right ankle. He states he twisted his ankle while walking the dog 3 days ago. He states he did not fall. He states he also developed a gout flare in the same foot of the great toe yesterday. He states he has a history of high blood pressure CHF COPD 2 heart attacks high cholesterol fractured back x3 bilateral clavicle fractures left leg fracture right rib fracture and fracture of the skull. He states he has had surgery on his back x9 cardiac cath with stents x5 and an appendectomy. He also has arthritis and gout. He states he still smokes a pack a day and drinks 2-3 times a month. He states he has been walking on this foot since when he injured it but the pain is gotten worse. He was given Toradol and Percocet [place] the [place] and states that it is still hurting. TRAVEL OUTSIDE OF THE [place] IN LAST 30 DAYS: No - HPI Patient complains to provider of: Injury, Pain, Swelling Location: Ankle - Right Occurred: Other - Where: Outdoors, Public place Onset/Duration: Gradual Quality of pain: Achy, Throbbing Severity: Severe Pain Level: 5 Context: Twisted Recent injury: Yes Associated symptoms: Painful ambulation Exacerbated by: Hanging down, Movement, Walking Relieved by: Elevation, Ice, Rest - Related Data Allergies/Adverse Reactions: Penicillins Allergy (Verified 11/10/18 15:16) ondansetron [From Zofran] Adverse Reaction (Verified 11/10/18 15:16) headache Past Medical History - General Information source: Patient - Social History Smoking Status: Current Every Day Smoker Cigarette use (# per day): Yes - ppd Smoking Education Provided: Yes - 4 min Frequency of alcohol use: Occasional 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 Lives with: Family Family History: Reviewed & Not Pertinent Patient has suicidal ideation: No Patient has homicidal ideation: No - Past Medical History Cardiac Medical History: Reports: Hx Congestive Heart Failure, Hx Heart Attack - x3, Hx Hypercholesterolemia, Hx Hypertension Pulmonary Medical History: Reports: Hx COPD EENT Medical History: Reports: None Neurological Medical History: Reports: None Endocrine Medical History: Reports: None Renal/ Medical History: Reports: None Malignancy Medical History: Reports None GI Medical History: Reports: None Musculoskeletal Medical History: Reports Hx Arthritis, Reports Hx Gout, Reports Hx Musculoskeletal Deformity, Reports Hx Musculoskeletal Trauma Skin Medical History: Reports None Psychiatric Medical History: Reports: None Traumatic Medical History: Reports: Hx Fractures - Here bilateral clavicle, left leg, right ribs, skull, fractured back x3 Past Surgical History: Reports: Hx Appendectomy, Hx Cardiac Surgery - stent x5, Hx Orthopedic Surgery - 9 back sx Review of Systems - Review of Systems Constitutional: No symptoms reported EENT: No symptoms reported Cardiovascular: No symptoms reported Respiratory: No symptoms reported Gastrointestinal: No symptoms reported Genitourinary: No symptoms reported Male Genitourinary: No symptoms reported Musculoskeletal: Gout, Ankle swelling, Other Skin: No symptoms reported Hematologic/Lymphatic: No symptoms reported Neurological/Psychological: No symptoms reported -: Yes All other systems reviewed and negative Physical Exam - Vital signs Vitals: Temp Pulse Resp BP Pulse Ox 97.8 F 114 H 17 201/102 H 97 11/10/18 15:18 11/10/18 15:18 11/10/18 15:18 11/10/18 15:18 11/10/18 15:18 Interpretation: Normal - General General appearance: Appears well, Alert - HEENT Head: Normocephalic, Atraumatic Eyes: Normal Pupils: PERRL - Respiratory Respiratory status: No respiratory distress Chest status: Nontender Breath sounds: Normal Chest palpation: Normal - Cardiovascular Rhythm: Regular Heart sounds: Normal auscultation Murmur: No - Abdominal Inspection: Normal Distension: No distension Bowel sounds: Normal Tenderness: Nontender Organomegaly: No organomegaly - Back Back: Normal, Nontender - Extremities General upper extremity: Normal inspection, Nontender, Normal color, Normal ROM, Normal temperature General lower extremity: Normal temperature. No: Maggie's sign Ankle: Tender, Edema - Medial aspect of the ankle. No: Limited ROM, Unable to bear weight Foot: Tender, Edema, No evidence of FB, Other - Probable gout right great toe. No: Ecchymosis - Neurological Neuro grossly intact: Yes Cognition: Normal Orientation: AAOx4 Abundio Coma Scale Eye Opening: Spontaneous [place] Coma Scale Verbal: Oriented [place] Coma Scale Motor: Obeys Commands [place] Coma Scale Total: 15 Speech: Normal Motor strength normal: LUE, RUE, LLE, RLE Sensory: Normal - Psychological Associated symptoms: Normal affect, Normal mood - Skin Skin Temperature: Warm Skin Moisture: Dry Skin Color: Normal Course - Re-evaluation Re-evalutation: 11/11/18 02:38 The patient is nontoxic appearing with stable vitals. They are afebrile. Ankle exam shows no deformities with no obvious ligament instability. There is a normal pulse and sensation distally. There is no redness or signs of infection. X-rays show no acute fracture per the radiologist. Patient will be placed in an Abdulaziz wrap for comfort. Crutches will be offered and given if requested. Patient will be instructed to follow-up with not better in 1 week, sooner for increasing pain, fever, redness, numbness, tingling, weakness, any further concerns. Patient will be instructed to rest, ice, elevate their ankle. Patient was also treated with prednisone for a probable gout flare. He was given a prescription of prednisone and instructed to follow-up with his primary care doctor. Patient verbalized understanding and agreement with treatment plan - Vital Signs Vital signs: Temp Pulse Resp BP Pulse Ox 97.8 F 90 17 185/107 H 97 11/10/18 15:18 11/10/18 19:53 11/10/18 15:18 11/10/18 19:53 11/10/18 19:53 - Diagnostic Test Radiology reviewed: Image reviewed, Reports reviewed Procedures - Immobilization Right Ankle Time completed: 20:00 Pre-Proc Neuro Vasc Exam: Normal Immobilizer type: Abdulaziz wrap, Ankle stirrup, Crutches Performed by: PCT Post-Proc Neuro Vasc Exam: Normal Alignment checked and good: Yes Discharge - Discharge Clinical Impression: Right ankle sprain Qualifiers: Encounter type: initial encounter Involved ligament of ankle: unspecified ligament Qualified Code(s): S93.401A - Sprain of unspecified ligament of right ankle, initial encounter Condition: Stable Disposition: HOME, SELF-CARE Additional Instructions: SPRAINED ANKLE: Your sprained ankle results from stretching or tearing of the ligaments which support the ankle. This usually results from twisting the foot inward and under. The ligaments will require time and protection in order to heal properly. Many ankle sprains are quite disabling, and should be taken seriously. The usual treatment for an ankle sprain is cold packs; protection with tape, splints, or wraps; elevation; and staying off the ankle for at least a day. As the ankle improves, you can walk IF it's not painful to bear weight. Sports are best postponed until healing is complete. More serious sprains usually require strengthening exercises after early healing. Your physician has assessed the seriousness of the ligament injury to your ankle. However, the treatment may change, depending on how your ankle progresses. If further exams were recommended, it is important that you follow through. Call the doctor if your foot becomes numb, painful, or severely swollen. Gout You have been diagnosed as having gout. Gout is a problem caused by an excess of uric acid, a natural chemical found in the body. The cause of this disease is unknown. Gout arthritis occurs when crystals of uric acid form in the joints. The big toe is the most common joint involved, but any joint can become affected. Persons with gout may also form uric acid kidney stones, resulting in flank pain and blood in the urine. Nodules of uric acid may form under the skin. The first step of treatment is to decrease the inflammation in the joint with antiinflammatory medication. Medication to lower the uric acid level in the blood may then be prescribed. This medication should be taken regularly, as any sudden change in dosage may provoke an attack of gout. Some foods, such as red meat, can provoke an attack in some gout sufferers. Call the doctor if new symptoms arise, or if you do not improve. Gout Diet Changing your diet can decrease the uric acid in your blood. High levels of uric acid cause gouty arthritis and uric acid kidney stones. If you have gout, you should avoid meats that are high in purine. Meat products to avoid include liver, kidneys, and brains. In general, poultry is better than red meats. Seafoods to avoid include anchovies, sardines, butler, mackerel, and scallops. In addition to limiting purine-rich foods, people with gout should limit protein intake to 10-15% of total calories. Carbohydrate intake should be around 50% of total daily calories. Limit fat intake to 30% of total daily calories. Cholesterol intake should be less than 300 mg/day. Maintain or achieve a healthy body weight. Weight loss should be gradual. Rapid weight loss can actually increase uric acid levels temporarily. Alcohol, especially beer, should be avoided. Get plenty of fluids. This dilutes urinary uric acid, and helps prevent uric acid kidney stones. Drink eight to twelve cups of water daily. ABDULAZIZ WRAP: A compression dressing (abdulaziz wrap) has been placed. This helps hold the area still. It limits swelling and internal bleeding. The wrap should be comfortably snug -- not tight. You should feel a sense of pressure, but not severe pain under the wrap. Unless the physician tells you otherwise, you can adjust the wrap for comfort. If the wrap causes symptoms suggesting it's too tight -- uncomfortable pressure, swelling or discoloration beyond the wrap, numbness, or severe pain -- you must loosen the wrap. If these symptoms don't resolve promptly, return for re-evaluation. ANKLE STIRRUP SPLINT: You are to use an ankle brace called a stirrup splint. This type of brace allows you to place greater stresses on the ankle without risk of re-injury, and is often used for more severe ankle injuries such as avulsion fractures and ligament ruptures. The splint can be worn over a sock or tape. For proper support, wear the splint with a shoe over it. It's important that the splint fit properly. Adjust the heel tension, if needed. If your splint has air bladders, peel back the bottom of each air bladder, then move the Velcro attachment of the heel strap up or down. Air bladder pressure can be adjusted by pulling up the valve at the top, threading the air tube down into the main bladder, then blowing air into the bladder or squeezing it out. The two sides of the stirrup can be moved forward or back on your ankle by changing the attachment of the main straps. If you are unable to use the ankle comfortably in the splint, return for re-evaluation. USE OF CRUTCHES: The doctor has recommended that you not bear weight at this time. You will need to use crutches. Adjust the crutches so the tops come to about two inches under the armpit while you are standing upright. Use your hands -- not your armpits -- to support your weight. To get into a chair, support yourself with one crutch on the injured side. Hold the chair with the other hand, then lower yourself while putting all your weight on the good leg. Going up stairs is `good leg up, step up, then bring up crutches and bad leg.' Down stairs is `bad leg and crutches down, then bring good leg down.' If you develop numbness or swelling in an arm or hand, you are using the crutches incorrectly. Return if you are having any problems with the crutches. ICE & ELEVATION: Apply ice packs frequently against the painful area. Many different schedules are recommended, such as "20 minutes on, 20 minutes off" or "one hour ice, two hours rest." If you need to work, you may need to go longer between ice treatments. You should plan to have the area ice packed AT LEAST one-fourth of the time. The ice should be applied over the wrap, tape, or splint, or over a layer of cloth -- not directly against the skin. Some ice bags have a built-in cloth and can be put directly on the skin. Your injured part should be elevated as much as possible over the next 48 hours. Try to keep the injury above the level of the heart. Avoid use of the injured area. Elevation and rest will decrease the swelling. USE OF [id number] IBUPROFEN: Ibuprofen (Advil, Nuprin, Medipren, Motrin IB) is a medication for fever and pain control. In addition, it has anti- inflammatory effects which may be beneficial, especially in the treatment of injuries. It's best to take ibuprofen with food. Persons with ulcer disease or allergy to aspirin should notify their physician of this before taking ibuprofen. Ibuprofen can be given every four to six hours, for a total of four doses daily. Age Pain or fever dose Antiinflammatory dose 6-8 yr 200 mg (1 tab) 200 mg (1 tab) 9-11 yr 200 mg (1 tab) 200-400 mg (1-2 tab) 11-14 yr 200-400 mg (1-2 tab) 400 mg (2 tab) 15-adult 400 mg (2 tab) 600 mg (3 tab) ORAL NARCOTIC MEDICATION: You have been given a prescription for pain control. This medication is a narcotic. It's best taken with food, as nausea can result if taken on an empty stomach. Don't operate machinery or drive within six hours of taking this medication. Do not combine this medicine with alcohol, or with any medication which can cause sedation (such as cold tablets or sleeping pills) unless you get permission from the physician. Narcotics tend to cause constipation. If possible, drink plenty of fluids and eat a diet high in fiber and fruits. Please be aware that prescription narcotics also have the potential for abuse. People become addicted to these medications because of the general sense of wellbeing that they induce. This feeling along with a significant reduction in tension, anxiety, and aggression provides a stimulating seductive quality to these drugs. Once your pain is under control, we encourage you to discard your unused narcotics. FOLLOW-UP CARE: If you have been referred to a physician for follow-up care, call the physicians office for an appointment as you were instructed or within the next two days. If you experience worsening or a significant change in your symptoms, notify the physician immediately or return to the Emergency Department at any time for re-evaluation. Prescriptions: Oxycodone HCl/Acetaminophen [Percocet 5-325 mg Tablet] 1 tab PO Q6HP PRN #2 tablet PRN Reason: Prednisone [Deltasone 20 mg Tablet] 2 tab PO DAILY 5 Days tablet Forms: Elevated Blood Pressure, Smoking Cessation Education, Return to Work Referrals: [facility] [Provider Group] - Follow up as needed
[2018-11-10] MEDS ORDERED: PREDNISONE 20 MG TABLET PO ONE (19:52)
[2018-11-10 19:57] VITALS: BP 185/107
== END 2018-11-10 20:08 | disposition home or self-care (01) ==
LOC: ER 15:12
DX: S93.401A Sprain of unspecified ligament of right ankle, initial encounter (principal); X50.9XXA Other and unspecified overexertion or strenuous movements or postures, initial encounter; Y93.K1 Activity, walking an animal; I10 Essential (primary) hypertension; J44.9 Chronic obstructive pulmonary disease, unspecified; F17.210 Nicotine dependence, cigarettes, uncomplicated; Z71.6 Tobacco abuse counseling; Z88.0 Allergy status to penicillin
CPT/HCPCS: 73610; 73630; L1902; J1885; J7512; 96372; 99283; 99406

== ENCOUNTER 2019-04-25 09:11 | Emergency (ER) | payer SELFPAY ==
[2019-04-25 09:37] LABS: ABSOLUTE BASOPHILS # (AUTO) 0.1 10^3/uL (0.0-0.2); ABSOLUTE EOSINOPHILS # (AUTO) 0.5 10^3/uL (0.0-0.6); ABSOLUTE LYMPHOCYTES (AUTO) 2.1 10^3/uL (0.5-4.7); ABSOLUTE MONOCYTES (AUTO) 0.9 10^3/uL (0.1-1.4); ABSOLUTE NEUT (AUTO) 6.4 10^3/uL (1.7-8.2); BASOPHILS % (AUTO) 0.6 % (0-2); EOSINOPHILS % (AUTO) 4.9 % (0-6); HEMOGLOBIN 15.7 g/dL (13.5-17.0); LYMPHOCYTES % (AUTO) 21.4 % (13-45); MEAN CORPUSCULAR HEMOGLOBIN 30.1 pg (27.0-33.4); MEAN CORPUSCULAR HGB CONC 34.1 g/dL (32.0-36.0); MEAN CORPUSCULAR VOLUME 88 fl (80-97); MONOCYTES % (AUTO) 8.8 % (3-13); PLATELET COUNT 250 10^3/uL (150-450); RED CELL DISTRIBUTION WIDTH 15.6 % (11.5-14.0); SEGMENTED NEUTROPHILS % (AUTO) 64.3 % (42-78); TOTAL CELLS COUNTED % (AUTO) 100 %
[2019-04-25 09:44] LABS: PROTHROMBIN TIME 33.5 SEC (11.4-15.4)
[2019-04-25 09:53] LABS: ALBUMIN 4.6 g/dL (3.5-5.0); ALKALINE PHOSPHATASE 118 U/L (38-126); ANION GAP 15 (5-19); ASPARTATE AMINO TRANSFERASE 33 U/L (17-59); BILIRUBIN,DIRECT 0.3 mg/dL (0.0-0.4); BILIRUBIN,TOTAL 0.7 mg/dL (0.2-1.3); BLOOD UREA NITROGEN 9 mg/dL (7-20); CALCIUM 9.4 mg/dL (8.4-10.2); CARBON DIOXIDE 24 mmol/L (22-30); CHLORIDE 104 mmol/L (98-107); GLUCOSE 114 mg/dL (75-110); POTASSIUM 4.4 mmol/L (3.6-5.0); TOTAL PROTEIN 8.5 g/dL (6.3-8.2)
[2019-04-25 10:05] LABS: CREATINE KINASE MB 3.08 ng/mL (<4.55); TROPONIN I 0.032 ng/mL
[2019-04-25] MEDS ORDERED: METOCLOPRAMIDE HCL INJ/PF 10 MG/2 ML SDV IV ONE (10:14)
[2019-04-25] MEDS ORDERED: FENTANYL CITRATE INJ/PF 100 MCG/2 ML AMPUL IV ONE (10:14)
[2019-04-25] MEDS ORDERED: DIPHENHYDRAMINE HCL 50 MG/ML VIAL IV ONE (10:15)
--- NOTE | 2019-04-25 10:53 | RADIOLOGY REPORT (SQ) ---
EXAM DESCRIPTION: CHEST SINGLE VIEW COMPLETED DATE/TIME: 04/25/2019 10:43 am REASON FOR STUDY: HTN COMPARISON: PA view of the chest from 04/05/2018. EXAM PARAMETERS: NUMBER OF VIEWS: One view. TECHNIQUE: An AP view of the chest was obtained. RADIATION DOSE: NA LIMITATIONS: None. FINDINGS: LUNGS AND PLEURA: Low inspiratory lung volumes without a superimposed consolidation, pleur al effusion or pneumothorax. MEDIASTINUM AND HILAR STRUCTURES: No mediastinal or hilar contour abnormality. HEART AND VASCULAR STRUCTURES: The cardiac silhouette and pulmonary vasculature are within normal nicholas its. BONES: No acute findings. HARDWARE: None in the chest. OTHER: No other finding. IMPRESSION: Low inspiratory lung volumes without a superimposed acute cardiopulmonary process. TECHNICAL DOCUMENTATION: JOB ID: [id number] 2010 [employer]- All Rights Reserved Reading location - IP/workstation name: [email or web address]
[2019-04-25 11:04] LABS: A TYPE INFLUENZA AG NEGATIVE (NEGATIVE); B INFLUENZA AG NEGATIVE (NEGATIVE)
--- NOTE | 2019-04-25 13:20 | ER Document Report ---
Entered by FELISA GONZALEZ SCRIBE 04/25/19 1006 Acting as scribe for:JENAE BLACKMAN DO ED Cardiac - General Chief Complaint: Chest Pain Stated Complaint: CHEST PAIN Time Seen by Provider: 04/25/19 09:38 Mode of Arrival: Ambulatory Information source: Patient Notes: This 58 year old male patient presents to the emergency department today with complaints of chest pain which woke him up from sleep at 430 am this morning. Patient describes the pain as sharp. Patient states the pain eased off after being given nitro from EMS. Patient states he had a "conscious seizure" when the pain began as well. Patient has had nausea, vomiting, diarrhea the last few days as well. TRAVEL OUTSIDE OF THE [place] IN LAST 30 DAYS: No - Related Data Allergies/Adverse Reactions: Penicillins Allergy (Verified 11/10/18 15:16) ondansetron [From Zofran] Adverse Reaction (Verified 11/10/18 15:16) headache Past Medical History - General Information source: Patient - Social History Smoking Status: Current Every Day Smoker Cigarette use (# per day): No Chew tobacco use (# tins/day): No Frequency of alcohol use: Occasional Drug Abuse: None Lives with: Family Family History: Reviewed & Not Pertinent Patient has suicidal ideation: No Patient has homicidal ideation: No - Past Medical History Cardiac Medical History: Reports: Hx Congestive Heart Failure, Hx Heart Attack - x2, Hx Hypercholesterolemia, Hx Hypertension Pulmonary Medical History: Reports: Hx COPD Renal/ Medical History: Denies: Hx Peritoneal Dialysis Musculoskeletal Medical History: Reports Hx Arthritis, Reports Hx Gout, Reports Hx Musculoskeletal Deformity, Reports Hx Musculoskeletal Trauma Traumatic Medical History: Reports: Hx Fractures - Here bilateral clavicle, left leg, right ribs, skull, fractured back x3 Past Surgical History: Reports: Hx Appendectomy, Hx Cardiac Surgery - stent x5, Hx Orthopedic Surgery - 9 back sx Review of Systems - Review of Systems Constitutional: No symptoms reported EENT: No symptoms reported Cardiovascular: See HPI, Chest pain Respiratory: No symptoms reported Gastrointestinal: See HPI, Diarrhea, Nausea, Vomiting Genitourinary: No symptoms reported Male Genitourinary: No symptoms reported Musculoskeletal: No symptoms reported Skin: No symptoms reported Hematologic/Lymphatic: No symptoms reported Neurological/Psychological: See HPI, Seizure - ? -: Yes All other systems reviewed and negative Physical Exam - Vital signs Vitals: Resp Pulse Ox 15 98 04/25/19 09:20 04/25/19 09:20 - Notes Notes: Physical Exam: General: Alert, appears well. HEENT: Normocephalic. Atraumatic. PERRL. Extraocular movements intact. Oropharynx clear. Neck: Supple. Non-tender. Respiratory: No respiratory distress. Clear and equal breath sounds bilaterally. Cardiovascular: Regular rate and rhythm. Abdominal: Epigastric and left upper quadrant tenderness with palpation. No distension. Normal Bowel Sounds. Back: No gross abnormalities. Extremities: Moves all four extremities. Upper extremities: Normal inspection. Normal ROM. Lower extremities: Normal inspection. No edema. Normal ROM. Neurological: Normal cognition. AAOx4. Normal speech. Psychological: Normal affect. Normal Mood. Skin: Warm. Dry. Normal color. Course - Re-evaluation Re-evalutation: 04/25/19 14:14 MDM 58 year old vasculopath with known cad. High risk pt. Thought he was having mi this am with pain that woke him up. Discussed with him importance of staying and risk of / disability by leaving. He will not stay and has capacity to decide. He will sign out AMA. - Vital Signs Vital signs: Temp Pulse Resp BP Pulse Ox 98.5 F 74 19 123/73 99 04/25/19 09:45 04/25/19 09:45 04/25/19 13:01 04/25/19 13:01 04/25/19 13:01 - Laboratory Result Diagrams: 04/25/19 09:26 04/25/19 09:26 Laboratory results interpreted by me: 04/25/19 04/25/19 04/25/19 09:26 09:26 09:26 RDW 15.6 H PT 33.5 H Glucose 114 H Total Protein 8.5 H - EKG Interpretation by Pa EKG shows normal: Sinus rhythm Rate: Normal Rhythm: NSR - NSR NL [place] 74 BPM inverted T waves are new without st elevation. My interpretation. Discharge - Discharge Clinical Impression: HTN (hypertension) Qualifiers: Hypertension type: unspecified Qualified Code(s): I10 - Essential (primary) hypertension CAD (coronary artery disease) Qualifiers: Coronary Disease-Associated Artery/Lesion type: unspecified vessel or lesion type [place] vs. transplanted heart: [place] heart Associated angina: with unstable angina Qualified Code(s): I25.110 - Atherosclerotic heart disease of [place] coronary artery with unstable angina pectoris Chest pain Qualifiers: Chest pain type: unspecified Qualified Code(s): R07.9 - Chest pain, unspecified Condition: Fair Disposition: AGAINST MEDICAL ADVICE Instructions: Angina Episode ([facility]), Aspirin (Cardiac) ([facility]), Chest Pain of Unclear Cause ([facility]), High Blood Pressure ([facility]) Additional Instructions: Rest, fluids, please return here for any problems or any concerns. Take your medicine as directed. Continue your medicines at home. Even though you are choosing to leave against medical advice you may return here at any time. Stop smoking. I personally performed the services described in the documentation, reviewed and edited the documentation which was dictated to the scribe in my presence, and it accurately records my words and actions.
[2019-04-25 14:34] VITALS: BP 134/68
--- NOTE | 2019-04-25 19:39 | EKG REPORT ---
SEVERITY:- ABNORMAL ECG - SINUS RHYTHM NONSPECIFIC INTRAVENTRICULAR CONDUCTION DELAY PROBABLE LVH WITH SECONDARY REPOL ABNRM : Confirmed by: Alana Pavon MD 25-Apr-2019 19:38:25
--- NOTE | 2019-04-25 19:39 | EKG REPORT ---
SEVERITY:- ABNORMAL ECG - SINUS RHYTHM NONSPECIFIC INTRAVENTRICULAR CONDUCTION DELAY CONSIDER ANTERIOR INFARCT : Confirmed by: Alana Pavon MD 25-Apr-2019 19:38:19
== END 2019-04-25 14:33 | disposition left against medical advice (07) ==
LOC: ER 09:11
DX: I25.110 Atherosclerotic heart disease of native coronary artery with unstable angina pectoris (principal); I10 Essential (primary) hypertension; R11.2 Nausea with vomiting, unspecified; R19.7 Diarrhea, unspecified; R10.816 Epigastric abdominal tenderness; R10.812 Left upper quadrant abdominal tenderness; I25.2 Old myocardial infarction; J44.9 Chronic obstructive pulmonary disease, unspecified; F17.200 Nicotine dependence, unspecified, uncomplicated; Z95.5 Presence of coronary angioplasty implant and graft; Z88.0 Allergy status to penicillin; Z53.20 Procedure and treatment not carried out because of patient's decision for unspecified reasons
CPT/HCPCS: 93005; 99285; 96374; 96375; 36415; 82553; 83690; 83735; 85025; 85610; 80053; 84484; 87804; 71045; 93010; J1200; J3010; J2765

== ENCOUNTER 2019-05-08 07:30 | Emergency (ER) | payer SELFPAY ==
--- NOTE | 2019-05-08 07:47 | RADIOLOGY REPORT (SQ) ---
CT head without contrast on 05/08/2019 at 7:31 AM CLINICAL INDICATION: Stroke TECHNIQUE: Multiple axial images are obtained throughout the head without the administration of contrast. This exam was performed according to our departmental dose-optimization program, which includes automated exposure control, adjustment of the mA and/or kV according to patient size and/or use of iterative reconstruction technique. Total DLP is 1043.77 mGy*cm. COMPARISON: None FINDINGS: There is no hydrocephalus. 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 No definite CT evidence of acute infarct is noted. There is no hemorrhage. There are no abnormal extra-axial fluid collections. There is no mass, mass effect or midline shift. No bony abnormality is noted. IMPRESSION: No acute intracranial abnormality.
--- NOTE | 2019-05-08 07:56 | ER Document Report ---
ED General - General Chief Complaint: S/S of Possible Stroke Stated Complaint: POSSIBLE STROKE ALERT TRAVEL OUTSIDE OF THE [place] IN LAST 30 DAYS: No - HPI Notes: Chief complaint: Left-sided weakness and left upper and lower extremity pain 57-year-old male presented to ED via EMS as a "code stroke". Report was that patient had developed sudden onset of left-sided weakness while sitting on his couch at home. Further clarification of the history is that this man has longstanding history of alcohol abuse and has a history of seizures "once or twice a month" for which she is not currently taking any medication. Daughter indicates he was sitting on the couch at home after drinking "8 or 9 beers" and that he began having some right sided shaking of upper and lower extremities and stared off to his left side and was suddenly unable to talk. He also had urinary incontinence. He came out of this within a couple of minutes and then complained of severe cramping pain in his left upper and lower extremity she said that he seemed to have difficulty speaking. She called EMS and he was transported to the ED. I reviewed old records and I see with this man previously is come to the ED complaining of severe pain in his left lower extremity on at least one occasion and requested narcotic medications for pain. He does have a history of gout. He states he has a history of high blood pressure CHF COPD 2 heart attacks high cholesterol fractured back x3 bilateral clavicle fractures left leg fracture right rib fracture and fracture of the skull. He states he has had surgery on his back x9 cardiac cath with stents x5 and an appendectomy. He also has arthritis and gout. He states he still smokes a pack a day. Patient is presently on warfarin. - Related Data Allergies/Adverse Reactions: Penicillins Allergy (Verified 05/08/19 07:42) ondansetron [From Zofran] Adverse Reaction (Verified 05/08/19 07:42) headache Past Medical History - General Information source: Patient - Social History Smoking Status: Current Every Day Smoker Frequency of alcohol use: Heavy Drug Abuse: None Family History: Reviewed & Not Pertinent Patient has suicidal ideation: No Patient has homicidal ideation: No - Past Medical History Cardiac Medical History: Reports: Hx Congestive Heart Failure, Hx Heart Attack - x2, Hx Hypercholesterolemia, Hx Hypertension Pulmonary Medical History: Reports: Hx COPD Neurological Medical History: Reports: Hx Seizures Renal/ Medical History: Denies: Hx Peritoneal Dialysis Musculoskeletal Medical History: Reports Hx Arthritis, Reports Hx Gout, Reports Hx Musculoskeletal Deformity, Reports Hx Musculoskeletal Trauma Traumatic Medical History: Reports: Hx Fractures - Here bilateral clavicle, left leg, right ribs, skull, fractured back x3 Past Surgical History: Reports: Hx Appendectomy, Hx Cardiac Surgery - stent x5, Hx Orthopedic Surgery - 9 back sx Review of Systems - Review of Systems Notes: Constitutional: Negative for fever. HENT: Negative for sore throat. Eyes: Negative for visual changes. Cardiovascular: Negative for chest pain. Respiratory: Negative for shortness of breath. Gastrointestinal: Negative for abdominal pain, vomiting or diarrhea. Genitourinary: Negative for dysuria. Musculoskeletal: Negative for back pain. Skin: Negative for rash. Neurological: As per HPI. 10 point ROS negative except as marked above and in HPI. Physical Exam - Vital signs Vitals: Pulse Resp BP Pulse Ox 85 20 145/82 H 97 05/08/19 07:30 05/08/19 07:30 05/08/19 07:30 05/08/19 07:30 - Notes Notes: GENERAL: Middle-age male with slurred speech and heavy odor of alcohol. Patient is rocking back and forth in bed complaining of severe cramping in his left upper and lower extremity. SKIN: Good turgor no rashes. HEAD: Normocephalic atraumatic. EYES: PERRLA. EOMI. Conjunctivae and sclerae clear. EARS: CANALS AND TMS CLEAR. NOSE: CLEAR. MOUTH: Moist mucosa. Good dentition. No stridor or edema. No drooling. Throat: Normal gag reflex. Throat clear. NECK: Supple. No masses or thyromegaly. No adenopathy. Carotids 2+ without bruits. No JVD. BACK: Symmetrical without tenderness. CHEST: Respirations unlabored. Breath sounds clear and symmetrical. HEART: Regular rhythm. No murmur gallop or rub. ABDOMEN: Soft nontender without masses, organomegaly or rebound. Bowel sounds normally active. No bruits. GENITALIA: Deferred. EXTREMITIES: No edema. Complains of diffuse tenderness left upper and left lower extremity with any movement. Cap refill less than 1.5 seconds. Dorsalis pedis and posterior tibial pulses 3+ and symmetrical. NEUROLOGICAL: GCS 15. Alert and oriented x3. Slurred speech. Cranial nerves II through XII intact. Sensation intact. Motor testing is inconsistent. I cannot really get him to cooperate adequately to assess for drift in either lower extremity although he complains of severe pain when we attempt to actively or passively move his left lower extremity. Similarly when I get him to shredder picker his left arm he holds this in a fixed position but as soon is touch the hand or wrist he begins complaining of severe pain again and immediately lets the arm fall to the stretcher. Diffuse symmetrical hyperreflexia. PSYCHIATRIC: Somewhat belligerent and argumentative. Course - Re-evaluation Re-evalutation: 05/08/19 10:32 This was originally presented as a "code stroke" case. His exam did not appear consistent with a stroke and he indicated that his current symptoms developed after he had had a generalized seizure. This was actually witnessed by his daughter who subsequently arrived and described what sounds like a focal seizure on the right side and staring off to the left followed by decreased r esponsiveness and urinary incontinence. This man has an elevated blood alcohol in the 260 range. He has not provided a urine for drug screening here. 05/08/19 10:34 CBC is normal. Comprehensive metabolic profile normal. INR is therapeutic at 2.2. Head scan showed questionable old lacunar infarct with no acute changes. I ordered some Ativan IV as well as some IV Keppra. I feel he is probably had a transient Martir's paralysis related to a seizure. I was going to give him an IV banana bag and recommend admission. Patient was requesting IV narcotic analgesic. I told him I did not feel comfortable with that this time. He subsequently announced he was going to sign out AMA. His daughter is willing to take him home and supervise his care. - Vital Signs Vital signs: Temp Pulse Resp BP Pulse Ox 97.9 F 85 20 145/82 H 97 05/08/19 07:46 05/08/19 07:46 05/08/19 07:46 05/08/19 07:46 05/08/19 07:46 - Laboratory Result Diagrams: 05/08/19 07:50 05/08/19 07:50 Laboratory results interpreted by me: 05/08/19 05/08/19 05/08/19 07:50 07:50 07:50 RDW 15.9 H PT 25.0 H APTT 50.0 H Sodium 146.1 H Chloride 110 H Discharge - Discharge Clinical Impression: Seizure, Musculoskeletal pain of left lower extremity Alcohol intoxication Qualifiers: Complication of substance-induced condition: with unspecified complication Qualified Code(s): F10.929 - Alcohol use, unspecified with intoxication, unspecified Disposition: AGAINST MEDICAL ADVICE
[2019-05-08 08:11] LABS: ABSOLUTE BASOPHILS # (AUTO) 0.1 10^3/uL (0.0-0.2); ABSOLUTE EOSINOPHILS # (AUTO) 0.5 10^3/uL (0.0-0.6); ABSOLUTE LYMPHOCYTES (AUTO) 2.1 10^3/uL (0.5-4.7); ABSOLUTE MONOCYTES (AUTO) 0.7 10^3/uL (0.1-1.4); ABSOLUTE NEUT (AUTO) 5.9 10^3/uL (1.7-8.2); BASOPHILS % (AUTO) 1.4 % (0-2); EOSINOPHILS % (AUTO) 5.7 % (0-6); HEMATOCRIT 43.7 % (37.9-51.0); LYMPHOCYTES % (AUTO) 22.5 % (13-45); MEAN CORPUSCULAR HEMOGLOBIN 30.2 pg (27.0-33.4); MEAN CORPUSCULAR HGB CONC 34.4 g/dL (32.0-36.0); MEAN CORPUSCULAR VOLUME 88 fl (80-97); MONOCYTES % (AUTO) 7.4 % (3-13); PLATELET COUNT 241 10^3/uL (150-450); RED BLOOD COUNT 4.97 10^6/uL (4.35-5.55); RED CELL DISTRIBUTION WIDTH 15.9 % (11.5-14.0); TOTAL CELLS COUNTED % (AUTO) 100 %; WHITE BLOOD COUNT 9.3 10^3/uL (4.0-10.5)
[2019-05-08 08:27] LABS: INTERNATIONAL RATION (INR) 2.22
--- NOTE | 2019-05-08 08:30 | RADIOLOGY REPORT (SQ) ---
EXAM DESCRIPTION: CHEST SINGLE VIEW COMPLETED DATE/TIME: 05/08/2019 7:40 am REASON FOR STUDY: STROKE COMPARISON: 04/25/2019 EXAM PARAMETERS: NUMBER OF VIEWS: One view. TECHNIQUE: Single frontal radiographic view of the chest acquired. RADIATION DOSE: NA LIMITATIONS: None. FINDINGS: LUNGS AND PLEURA: No opacities, masses or pneumothorax. No pleural effusion. MEDIASTINUM AND HILAR STRUCTURES: No masses. Contour normal. HEART AND VASCULAR STRUCTURES: Heart normal in size. Normal vasculature. BONES: No acute findings. HARDWARE: None in the chest. OTHER: No other significant finding. IMPRESSION: NO ACUTE RADIOGRAPHIC FINDING IN THE CHEST. TECHNICAL DOCUMENTATION: JOB ID: [id number] 2010 [employer]- All Rights Reserved Reading location - IP/workstation name: [email or web address]
[2019-05-08 08:31] LABS: ALBUMIN 4.4 g/dL (3.5-5.0); ALCOHOL 262 mg/dL (NONE DETECTED); ALKALINE PHOSPHATASE 109 U/L (38-126); ANION GAP 14 (5-19); ASPARTATE AMINO TRANSFERASE 35 U/L (17-59); BILIRUBIN,DIRECT 0.3 mg/dL (0.0-0.4); BILIRUBIN,TOTAL 0.6 mg/dL (0.2-1.3); BLOOD UREA NITROGEN 11 mg/dL (7-20); CALCIUM 9.2 mg/dL (8.4-10.2); CARBON DIOXIDE 22 mmol/L (22-30); CHLORIDE 110 mmol/L (98-107); GLUCOSE 103 mg/dL (75-110); POTASSIUM 4.4 mmol/L (3.6-5.0); TOTAL PROTEIN 7.9 g/dL (6.3-8.2)
[2019-05-08] MEDS ORDERED: LORAZEPAM INJ 2 MG/1 ML VIAL IV ONE (09:31)
[2019-05-08] MEDS ORDERED: LEVETIRACETAM 1000 MG/NACL-ISO 1,000 MG/100 ML RTUPB IV ONE (09:32)
--- NOTE | 2019-05-08 10:08 | RADIOLOGY REPORT (SQ) ---
EXAM DESCRIPTION: VENOUS BILATERAL LOWER COMPLETED DATE/TIME: 05/08/2019 9:57 am REASON FOR STUDY: l leg COMPARISON: None. TECHNIQUE: Dynamic and static cooper scale and color images acquired of both lower extremity venous sy stems. Selected spectral images acquired with additional compression and augmentation maneuvers. Imag es stored on PACS. LIMITATIONS: None. FINDINGS: RIGHT LEG COMMON FEMORAL AND FEMORAL: Normal phasicity, compression and augmentation. No visualized echogenic m aterial on cooper scale. No defects on color images. POPLITEAL: Normal compression and augmentation. No visualized echogenic material on cooper scale. No de fects on color images. CALF VESSELS: Normal compression and augmentation. No visualized echogenic material on cooper scale. No defects on color image. GSV AND SSV: Normal compression. No visualized echogenic material on cooper scale. No defects on color images. ANY DEEP VENOUS INSUFFICIENCY: Not evaluated. ANY EVIDENCE OF POPLITEAL CYST: No. OTHER: No other significant finding. LEFT LEG COMMON FEMORAL AND FEMORAL: Normal phasicity, compression and augmentation. No visualized echogenic m aterial on cooper scale. No defects on color images. POPLITEAL: Normal compression and augmentation. No visualized echogenic material on copoer scale. No de fects on color images. CALF VESSELS: Normal compression and augmentation. No visualized echogenic material on cooper scale. No defects on color images. GSV AND SSV: Normal compression. No visualized echogenic material on cooper scale. No defects on color images. ANY DEEP VENOUS INSUFFICIENCY: Not evaluated. ANY EVIDENCE POPLITEAL CYST: No. OTHER: No other significant finding. IMPRESSION: NO EVIDENCE DVT OR SVT IN EITHER LEG. TECHNICAL DOCUMENTATION: JOB ID: [id number] 2010 [employer]- All Rights Reserved Reading location - IP/workstation name: [email or web address]
[2019-05-08 10:37] VITALS: BP 113/56
[2019-05-08 10:48] LABS: APPEARANCE,URINE CLEAR; BILIRUBIN,URINE NEGATIVE (NEGATIVE); COLOR,URINE STRAW; GLUCOSE, URINE NEGATIVE (NEGATIVE); KETONES,URINE NEGATIVE (NEGATIVE); PROTEIN,URINE NEGATIVE (NEGATIVE); URINE SPECIFIC GRAVITY 1.004; UROBILINOGEN,URINE NEGATIVE mg/dL (<2.0)
[2019-05-08 11:09] LABS: URINE AMPHETAMINES SCREEN NEGATIVE; URINE BARBITURATES SCREEN NEGATIVE; URINE BENZODIAZEPINES SCREEN NEGATIVE; URINE COCAINE SCREEN NEGATIVE; URINE MARIJUANA (THC) SCREEN NEGATIVE; URINE METHADONE SCREEN NEGATIVE; URINE PHENCYCLIDINE SCREEN NEGATIVE
--- NOTE | 2019-05-08 17:23 | EKG REPORT ---
SEVERITY:- ABNORMAL ECG - SINUS RHYTHM NONSPECIFIC INTRAVENTRICULAR CONDUCTION DELAY PROBABLE LVH WITH SECONDARY REPOL ABNRM : Confirmed by: Pascual Overton 08-May-2019 17:22:54
== END 2019-05-08 10:20 | disposition left against medical advice (07) ==
LOC: ER 07:30
DX: R56.9 Unspecified convulsions (principal); F10.929 Alcohol use, unspecified with intoxication, unspecified; G81.94 Hemiplegia, unspecified affecting left nondominant side; M79.605 Pain in left leg; M79.602 Pain in left arm; R32 Unspecified urinary incontinence; R47.81 Slurred speech; Y90.8 Blood alcohol level of 240 mg/100 ml or more; F17.200 Nicotine dependence, unspecified, uncomplicated; I50.9 Heart failure, unspecified; I11.0 Hypertensive heart disease with heart failure; E78.00 Pure hypercholesterolemia, unspecified; I25.2 Old myocardial infarction; Z88.0 Allergy status to penicillin
CPT/HCPCS: 36415; 70450; 71045; 80053; 80307; 81001; 83735; 84484; 85025; 85610; 85730; 93005; 93010; 93970; 99285